=== PATIENT | female | born 1995 | race Caucasian/White ===

== ENCOUNTER 2017-06-13 01:58 | Emergency (ER) | payer OTHER ==
[~2017-06-13] VITALS: Ht 152.4 cm; Wt 49.9 kg
--- NOTE | 2017-06-13 02:15 | NUR ---
PT BIBFAMILY, PT AMBULAOTRY TO ER BED 7. PT C/O SOB X LAST NIGHT, PT NOTED ANXIOUS. PT AOX3 RR EVEN AND UNLABORED. NO SOB NOTED. NAD NOTED. NO NVD AT THIS TIME. PT GOWNED AND PLACED ON MONITOR WAITING FOR MD BRADEN.
[2017-06-13] MEDS ORDERED: ALBUTEROL FS 2.5 MG/0.5 ML VIAL.NEB NEB ONE (02:30)
--- NOTE | 2017-06-13 02:35 | NUR ---
XRAY AT BEDSIDE FOR CXR
[2017-06-13] MEDS ORDERED: ALBUTEROL FS 2.5 MG/0.5 ML VIAL.NEB ONE (02:39)
--- NOTE | 2017-06-13 02:45 | NUR ---
PT ON BREATHING TX PER RT
--- NOTE | 2017-06-13 04:03 | NUR ---
Patient discharged to home in stable condition. Written and verbal after care instructions given. Patient verbalizes understanding of instruction. RN wicho at best to translate. Pt ambualotry with steady gait. pt instructed not to drive. pt verbalize understanding. accompanied by mother.
[2017-06-13 04:06] VITALS: BP 110/68
== END 2017-06-13 04:06 | disposition home or self-care (01) ==
LOC: ER 02:06
DX: R05 Cough (principal); Z91.02 Food additives allergy status
CPT/HCPCS: 71010-TC; A4606; Z7610